=== PATIENT | female | born 1975 | race Two or more races ===

== ENCOUNTER 2017-06-12 16:21 | Inpatient (IN) | payer MEDICAID ==
[~2017-06-12] VITALS: Ht 165.1 cm; Wt 73.0 kg
[2017-06-12 16:54] LABS: Basophils # (auto) 0 uL; Basophils % (auto) 0.3 % (0.0-2.0); CONDITION Y; Eosinophils # (auto) 0.1 uL; Eosinophils % (auto) 0.7 % (0.0-7.0); Hematocrit 40.6 % (36.0-46.0); Hemoglobin 13.3 g/dL (12.2-16.2); Lymphocytes # (auto) 0.8 uL; Mean Corpuscular Hemoglobin 28.6 pg (28.0-32.0); Mean Corpuscular Hgb Conc. 32.7 g/dL (32.0-36.0); Mean Corpuscular Volume 87.5 fL (80.0-100.0); Mean Platelet Volume 9.8 fL (7.4-10.4); Monocytes # (auto) 0.2 uL; Monocytes % (auto) 2.8 % (0.0-12.0); Neutrophils # (auto) 7.5 uL; Neutrophils % (auto) 87.2 % (37.0-80.0); Platelet Count (auto) 240 10^3/uL (140-450); Red Cell Distribution Width 14.2 % (11.6-16.0); SUSPECT SEE PRINTOUT; White Blood Cell 8.6 10^3/uL (4.4-10.8)
[2017-06-12 17:11] LABS: Albumin 3.8 g/dL (3.4-5.0); BUN/Creatinine Ratio 13.8; Calcium 8.7 mg/dL (8.5-10.1); Potassium 3.8 mmol/L (3.5-5.1)
[2017-06-12 17:14] LABS: Bilirubin, Total 0.3 mg/dL (0.2-1.0)
[2017-06-12] MEDS ORDERED: SODIUM CHLORIDE 0.9% 1,000 ML IVB ONE (17:46)
[2017-06-12 18:16] LABS: Magnesium 1.9 mg/dL (1.6-2.6)
[2017-06-12 18:21] LABS: INR 0.92 (0.9-1.15); Partial Thromboplastin Time 29.4 sec (22.64-33.71)
[2017-06-12] MEDS ORDERED: MORPHINE SULF INJ 2 MG/ML SYRINGE 1ML IV ONE ×2 (18:45→21:15)
[2017-06-12] MEDS ORDERED: ONDANSETRON HCL 4 MG/2 ML VIAL IV ONE (18:45)
[2017-06-12] MEDS ORDERED: PANTOPRAZOLE SODIUM 40 MG/10 ML VIAL IV ONE (19:00)
[2017-06-12 20:22] LABS: Urine Bilirubin Negative (Negative); Urine Color Red (Yellow); Urine Glucose Normal (Normal); Urine Ketone Negative (Negative); Urine Nitrite Negative (Negative); Urine RBC 3466 /hpf (0 - 4); Urine Urobilinogen Normal (Negative)
[2017-06-12 20:34] LABS: Urine Blood 3+ /uL (Negative)
[2017-06-12] MEDS ORDERED: TEMAZEPAM 15 MG CAP PO PRN (22:15)
[2017-06-12] MEDS ORDERED: MORPHINE SULF INJ 2 MG/ML SYRINGE 1ML IV PRN (22:15)
[2017-06-12] MEDS ORDERED: cefTRIAXone 1GM/50ML D5W 50 ML IV ONE (22:15)
[2017-06-12] MEDS ORDERED: NITROGLYCERIN 0.4 MG SL TAB SL PRN (22:15)
[2017-06-12] MEDS ORDERED: ACETAMINOPHEN 325 MG TAB PO PRN (22:15)
[2017-06-12] MEDS ORDERED: ONDANSETRON HCL 4 MG/2 ML VIAL IV PRN (22:15)
[2017-06-12] MEDS: SODIUM CHLORIDE 0.9% 1,000 ML IV SCH (22:23)
[2017-06-12 22:38] LABS: Hematocrit 34.6 % (36.0-46.0); Hemoglobin 11.2 g/dL (12.2-16.2)
[2017-06-12] MEDS: HYDROcodone-ACET 5/325MG TAB PO PRN (23:04)
[2017-06-12 23:30] VITALS: BP 151/82
[2017-06-13] VITALS (9 sets, daily range): BP systolic 126–151; BP diastolic 68–91
[2017-06-13] MEDS: KETOROLAC TROMETH 30 MG/ML 1ML VIAL IV PRN ×2 (01:07→10:32)
[2017-06-13] MEDS ORDERED: OMEP20CA74 PO (01:24)
[2017-06-13] MEDS: HYDROcodone-ACET 5/325MG TAB PO PRN (04:08)
[2017-06-13 05:48] LABS: Basophils # (auto) 0 uL; Basophils % (auto) 0.4 % (0.0-2.0); CONDITION Y; Eosinophils # (auto) 0.1 uL; Eosinophils % (auto) 1.7 % (0.0-7.0); Hematocrit 32.2 % (36.0-46.0); Hemoglobin 10.7 g/dL (12.2-16.2); Lymphocytes # (auto) 1.2 uL; Lymphocytes % (auto) 27.3 % (10.0-50.0); Mean Corpuscular Hgb Conc. 33.2 g/dL (32.0-36.0); Mean Corpuscular Volume 87.5 fL (80.0-100.0); Mean Platelet Volume 9.9 fL (7.4-10.4); Monocytes # (auto) 0.3 uL; Monocytes % (auto) 7.3 % (0.0-12.0); Neutrophils # (auto) 2.8 uL; Neutrophils % (auto) 63.3 % (37.0-80.0); Platelet Count (auto) 192 10^3/uL (140-450); Red Cell Distribution Width 14.3 % (11.6-16.0); White Blood Cell 4.5 10^3/uL (4.4-10.8)
[2017-06-13 06:11] LABS: Albumin 2.9 g/dL (3.4-5.0); Calcium 7.7 mg/dL (8.5-10.1); Potassium 3.5 mmol/L (3.5-5.1)
[2017-06-13 06:14] LABS: BUN/Creatinine Ratio 11.9
[2017-06-13 06:17] LABS: Bilirubin, Total 0.2 mg/dL (0.2-1.0); Total Protein 6.2 g/dL (6.4-8.2)
[2017-06-13] MEDS: PANTOPRAZOLE SODIUM 40 MG/10 ML VIAL IV SCH ×2 (10:31→22:14)
[2017-06-13] MEDS: cefTRIAXone 1GM/50ML D5W 50 ML IV SCH (10:32)
[2017-06-13] MEDS ORDERED: GOLYTELY 4L KIT PO ONE (11:30)
[2017-06-13] MEDS: MORPHINE SULF INJ 2 MG/ML SYRINGE 1ML IV PRN ×4 (11:59→22:29)
[2017-06-13] MEDS: Boost Breeze 8 Ounces PO SCH ×2 (12:01→18:27)
[2017-06-13] MEDS: SODIUM CHLORIDE 0.9% 1,000 ML IV SCH (15:52)
[2017-06-14 05:00] VITALS: BP 131/73
[2017-06-14 06:22] LABS: Basophils # (auto) 0 uL; Basophils % (auto) 0.5 % (0.0-2.0); CONDITION Y; Eosinophils # (auto) 0.1 uL; Eosinophils % (auto) 2.1 % (0.0-7.0); Hematocrit 32.5 % (36.0-46.0); Hemoglobin 11.1 g/dL (12.2-16.2); Lymphocytes # (auto) 1.2 uL; Lymphocytes % (auto) 23.9 % (10.0-50.0); Mean Corpuscular Hemoglobin 29.9 pg (28.0-32.0); Mean Corpuscular Hgb Conc. 34.1 g/dL (32.0-36.0); Mean Corpuscular Volume 87.8 fL (80.0-100.0); Mean Platelet Volume 10.2 fL (7.4-10.4); Monocytes # (auto) 0.4 uL; Monocytes % (auto) 8.3 % (0.0-12.0); Neutrophils # (auto) 3.3 uL; Neutrophils % (auto) 65.2 % (37.0-80.0); Platelet Count (auto) 209 10^3/uL (140-450); Red Cell Distribution Width 13.7 % (11.6-16.0); White Blood Cell 5.1 10^3/uL (4.4-10.8)
[2017-06-14 06:33] LABS: BUN/Creatinine Ratio 8.9; Calcium 8.5 mg/dL (8.5-10.1); Magnesium 1.8 mg/dL (1.6-2.6); Phosphorus 2.5 mg/dL (2.5-4.90); Potassium 3.7 mmol/L (3.5-5.1)
[2017-06-14] MEDS ORDERED: SODIUM CHLORIDE LOCK 10 ML ONE (07:16)
[2017-06-14] MEDS ORDERED: LIDOCAINE VISCOUS 2% 15ML UD ONE (07:16)
[2017-06-14] MEDS ORDERED: diphenhdrAMINE HCL 50 MG/1 ML VL ONE (07:17)
[2017-06-14] MEDS: SODIUM CHLORIDE 0.9% 1,000 ML IV SCH (07:25)
[2017-06-14 08:00] VITALS: BP 131/86
[2017-06-14] MEDS: Boost Breeze 8 Ounces PO SCH ×3 (08:00→18:14)
[2017-06-14 08:35] VITALS: BP 131/86
[2017-06-14] MEDS: MORPHINE SULF INJ 2 MG/ML SYRINGE 1ML IV PRN ×2 (08:41→19:08)
[2017-06-14] MEDS: cefTRIAXone 1GM/50ML D5W 50 ML IV SCH (08:48)
[2017-06-14] MEDS: PANTOPRAZOLE SODIUM 40 MG/10 ML VIAL IV SCH (10:20)
[2017-06-14] MEDS: MIDAZOLAM HCL 5 MG/ML-1ML VIAL ONE ×3 (11:10→11:23)
[2017-06-14] MEDS: fentaNYL CITRATE 100 MCG/2 ML VL ONE ×3 (11:10→11:23)
[2017-06-14 12:32] VITALS: BP 146/95
[2017-06-14 17:17] VITALS: BP 140/86
[2017-06-14] MEDS: PANTOPRAZOLE 40 MG TAB PO SCH (21:13)
[2017-06-14 21:30] VITALS: BP 135/76
[2017-06-15] MEDS: SODIUM CHLORIDE 0.9% 1,000 ML IV SCH (00:30)
[2017-06-15 05:00] VITALS: BP 143/76
[2017-06-15] MEDS: Boost Breeze 8 Ounces PO SCH ×2 (08:00→12:00)
[2017-06-15 08:30] VITALS: BP 146/76
[2017-06-15] MEDS: cefTRIAXone 1GM/50ML D5W 50 ML IV SCH (08:44)
[2017-06-15] MEDS: PANTOPRAZOLE 40 MG TAB PO SCH (09:54)
[2017-06-15] MEDS ORDERED: PANT40T PO (12:51)
[2017-06-15 13:25] VITALS: BP 148/89
[2017-06-15 14:05] VITALS: BP 148/89
== END 2017-06-15 14:49 | disposition home or self-care (01) | DRG 532 ==
LOC: ER 16:30 → TELE 16:31 → TELE-WESTW 23:20
PROVIDERS: ADMIT Internal Medicine; ATTEND Internal Medicine
PROC: 0DB68ZX Excision of Stomach, Via Natural or Artificial Opening Endoscopic, Diagnostic (ICD-10-PCS; principal; 2017-06-14 11:08)
PROC: 0DJD8ZZ Inspection of Lower Intestinal Tract, Via Natural or Artificial Opening Endoscopic (ICD-10-PCS; 2017-06-14 11:08)
DX: N92.0 Excessive and frequent menstruation with regular cycle (principal); I31.3 Pericardial effusion (noninflammatory); K64.8 Other hemorrhoids; K29.70 Gastritis, unspecified, without bleeding; D62 Acute posthemorrhagic anemia; I10 Essential (primary) hypertension; N39.0 Urinary tract infection, site not specified; K57.30 Diverticulosis of large intestine without perforation or abscess without bleeding; J45.909 Unspecified asthma, uncomplicated; K64.4 Residual hemorrhoidal skin tags; Z80.0 Family history of malignant neoplasm of digestive organs; Z82.49 Family history of ischemic heart disease and other diseases of the circulatory system; Z87.11 Personal history of peptic ulcer disease
CPT/HCPCS: 36415; 43239; 45378; 71010; 74176; 80048; 80053; 81001; 82150; 83690; 83735; 84100; 84702; 85014; 85018; 85025; 85610; 85730; 86850; 86900; 86901; 87045; 87086; 87899; 88342; 93005; 94761; 96361; 96365; 96375; 96376; C9113; J0696; J1885; J2250; J2405